=== PATIENT | female | born 1960 | race Caucasian/White ===

== ENCOUNTER 2024-01-04 14:15 | Emergency (ER) | payer BC, SELFPAY ==
[2024-01-04 14:20] VITALS: BP 122/86
[2024-01-04 14:39] LABS: % Basophils 0.6 % (0-2); % Eosinophils 2.9 % (0-6); % Immature Granulocytes 0.8 % (0-0.5); % Lymphocytes 25.8 % (20.5-51.1); % Monocytes 8.6 % (1.7-9.3); % Neutrophils 61.3 % (42.2-75.2); Absolute Basophils 0.1 10^3/uL (0-0.2); Absolute Eosinophils 0.4 10^3/uL (0-0.7); Absolute Immature Granulocytes 0.1 10^3/uL (0-0.05); Absolute Lymphocytes 3.1 10^3/uL (1.2-3.4); Absolute Neutrophils 7.4 10^3/uL (1.4-6.5); Hematocrit 38.3 % (37.0-47.0); Hemoglobin 13.9 g/dL (12.0-16.0); Mean Corp Hgb Conc. 36.3 g/dL (33.0-37.0); Mean Corpuscular Hgb 35.3 pg (27.0-31.0); Mean Corpuscular Volume 97.2 fL (81.0-99.0); Mean Platelet Volume 9.2 fL (7.4-10.4); Nucleated Red Blood Cells % 0 %; Platelet Count 277 10^3/uL (130-400); Red Blood Cell Count 3.94 10^6/uL (4.20-5.40); Red Cell Dist. Width 12.8 % (11.5-14.5)
[2024-01-04 14:53] LABS: ALT (SGPT) 30 U/L (0-35); AST (SGOT) 30 U/L (14-36); Albumin 4.3 g/dl (3.5-5.0); Alkaline Phosphatase 76 U/L (38-126); Blood Urea Nitrogen 18 mg/dl (7-17); Calcium 9.2 mg/dl (8.4-10.2); Carbon Dioxide 26 mmol/L (22-30); Chloride 103 mmol/L (98-107); Glucose 96 mg/dl (70-99); Sodium 134 mmol/L (135-145); Total Bilirubin 0.7 mg/dl (0.2-1.3); Total Protein 6.9 g/dl (6.3-8.2); eGFR > 60.00
[2024-01-04 14:55] LABS: COVID-19 Antigen Negative (Negative)
[2024-01-04 15:03] LABS: Troponin I < 0.012 ng/ml
--- NOTE | 2024-01-04 16:09 | ED.GENMED ---
History of Present Illness
General
Chief Complaint: Cold/Flu/URI Symptoms
Source: patient
Exam Limitations: none
Time Seen by Provider: 01/04/24 16:07
Nursing documentation reviewed up to this point in time: agreed with
Travel History
Have you had any contact with someone who has COVID-19?: No
Do you have any symptoms of coronavirus? Fever > 100 degrees, chills, cough, shortness of breath, sore throat, loss of taste or smell, muscle aches, or headache?: No
History of Present Illness
History of Present Illness:
63-year-old female with history of asthma/COPD states she has had a cough for months she is coughing up 'green chunky stuff.' She denies fever or chills. She has significant sinus stuffiness.
She saw her PCP about a week into the cough and he put her on doxycycline and a 7-day prednisone taper. She was feeling better for short period and then the cough returned, her sinus stuffiness and pressure also returned. She states she has had
significant pressure in her sinuses and headaches due to the sinus pressure. She states sometimes when she blows her nose there is bloody mucus. She has chronic sinus stuffiness and has been using a Katie pot irrigation, Flonase, Sudafed with no
relief. She has known nasal polyps but her ENT will not remove them she says.
She went back to her PCP 2 weeks ago and he put her on Augmentin 875 twice daily for 10 days which she finished yesterday, still no in the room of the cough, still coughing up green chunky stuff, still with significant sinus pressure and stuffiness.
She has had no nausea or vomiting, no chest pain, no shortness of breath
Past History
Past History
ED Past Medical History: Asthma and COPD
ED Past Surgical History: Gynecological
Social History
Tobacco: Former smoker
Personal: Single
Living: with roommate
Review of Systems
Review of Systems
Allergies reviewed?: Yes
All Other Systems: ROS reviewed and negative except as documented in HPI and ROS
Constitutional: Reports fatigue; Denies fever
EENT: Reports other (sinus stuffiness and tenderness); Denies sore throat
Respiratory: Reports cough and trouble breathing
Cardiac: Denies chest pain
ABD/GI: Denies abdominal pain, nausea, vomiting or diarrhea
Musculoskeletal: Reports no symptoms
Skin: Reports no symptoms
Neurological: Reports headache
Phy Exam
Physical Exam
Physical Exam:
GENERAL: No acute distress. A&Ox3.
CONSTITUTIONAL: Afebrile.
EYES: PERRL, conjunctivae normal
Neck: Supple
ENMT: moist mucus membranes, Pharynx nl, cough productive of green sputum. Maxillary sinus tenderness, nasal stuffiness. Erythematous boggy nasal turbinates, small amount clear drainage.
RESPIRATORY: Regular respirations, nonlabored, lungs clear.
CARDIOVASCULAR: Regular rate and rhythm, no murmurs, no rubs.
GI: Soft, nontender, normal BS
MUSCULOSKELETAL: Moves with ease. Well perfused.
SKIN: Warm, dry, pink
PSYCH: Normal mood and affect. Well kept, interactive and appropriate
NEUROLOGIC: Awake, alert and oriented. No focal neurological deficits
Course
Orders/Labs/Results
Orders:
Orders
01/04/24 14:21
Electrocardiogram (*1) Urgent
Reason for Study: Shortness of Breath
01/04/24 14:22
EKG- Treatment ONCE
01/04/24 14:31
COVID-19 Antigen Urgent
Source: Nasal Swab
Complete Blood Count/With Diff Urgent
Comprehensive Metabolic Panel Urgent
Troponin I Urgent
Influenza A+B Rapid Molecular Urgent
GALILEO Source: Nasal Swab
Specimen Description:
01/04/24 16:21
Ipratropium/Albuterol Sulfate [Duoneb] 3 ml INH R NOW ONE
CR Chest - 2 Views Urgent
Comment:
Reason For Exam: SOB, cough
01/04/24 16:31
Ipratropium/Albuterol Sulfate [Duoneb] 3 ml .ROUTE .STK-MED ONE
Abnormal Lab Results
01/04/24
14:31
WBC 12.0 H 10^3/uL
(4.8-10.8)
RBC 3.94 L 10^6/uL
(4.20-5.40)
MCH 35.3 H pg
(27.0-31.0)
Abs Immat Gran (auto) 0.1 H 10^3/uL
(0-0.05)
Absolute Neuts (auto) 7.4 H 10^3/uL
(1.4-6.5)
Absolute Monos (auto) 1.0 H 10^3/uL
(0.1-0.6)
Immature Gran % 0.8 H %
(0-0.5)
Sodium 134 L mmol/L
(135-145)
BUN 18 H mg/dl
(7-17)
01/04/24 14:31
01/04/24 14:31
Vital Signs
Initial and Last Documented VS:
Initial Vital Signs
Temp Pulse Resp BP Pulse Ox
98.7 F 100 20 122/86 97
01/04/24 14:20 01/04/24 14:20 01/04/24 14:20 01/04/24 14:20 01/04/24 14:20
Last Documented Vital Signs
Temp Pulse Resp BP Pulse Ox
98.7 F 100 16 135/80 97
01/04/24 14:20 01/04/24 14:20 01/04/24 18:00 01/04/24 18:00 01/04/24 18:00
MDM/Problems Addressed
Differential Diagnosis Includes:
Bronchitis, pneumonia, COPD exacerbation, sinusitis
MDM/Problems Addressed:
63-year-old female with history of asthma/COPD states she has had a cough for months she is coughing up 'green chunky stuff.' She denies fever or chills. She has significant sinus stuffiness.
She saw her PCP about a week into the cough and he put her on doxycycline and a 7-day prednisone taper. She was feeling better for short period and then the cough returned, her sinus stuffiness and pressure also returned. She states she has had
significant pressure in her sinuses and headaches due to the sinus pressure. She states sometimes when she blows her nose there is bloody mucus. She has chronic sinus stuffiness and has been using a Baldwin pot irrigation, Flonase, Sudafed with no
relief. She has known nasal polyps but her ENT will not remove them she says.
She went back to her PCP 2 weeks ago and he put her on Augmentin 875 twice daily for 10 days which she finished yesterday, still no in the room of the cough, still coughing up green chunky stuff, still with significant sinus pressure and stuffiness.
She has had no nausea or vomiting, no chest pain, no shortness of breath
01/04/2024 1610 PM
CBC with no clinically significant abnormality. Mild elevation in white blood cells at 12.0
CMP normal
COVID test is negative
Flu test is negative
EKG NSR
01/04/2024 1710 PM
After DuoNeb patient states she is feeling 'a little better.'
Chest x-ray normal
01/04/2024 1739 PM
Patient feeling better, stable for discharge. She is requesting prescription for ipratropium since it seems to have helped, prescription sent to pharmacy for #25 Ipratropium
This may be a combination of acute bronchitis, mild flare of her COPD. Rx for Prednisone 40 mg daily for 4 days sent to her pharmacy
Referred to ENT as she wants someone new to evaluate her sinuses.
There is a 2-hour backup in CAT scan, I informed patient of this and she does not want to wait for CAT scan of her sinuses, she will f/u with ENT
She is already using nasal corticosteroids and nasal saline spray and decongestant.
Pt improved, stable for discharge
Ambulated out with normal gait.
*Critical Care Note
Total Time (30-74mins, 75-104mins- exclusive of procedures): Not Applicable
ED Attending Note
-
Portions of this chart may have been created with voice recognition software.� Occasional wrong word or��sound alike� substitutions may have occurred due to the inherent limitations of voice recognition software.
Discharge Plan
Departure
Patient Disposition: Home (Routine Discharge)
Date of Disposition: 01/04/24
Time of Disposition: 17:50
Patient with high blood pressure during this ER visit?: No
Condition: Good
Discharge Problem:
Acute bronchitis, Sinusitis, COPD exacerbation
Instructions: Acute Bronchitis, Adult (DC), Sinusitis, Adult ED
Prescriptions:
New
prednisone 20 mg tablet
40 mg PO DAILY Qty: 8 0RF
ipratropium bromide 0.02 % solution
2.5 ml inhalation Q8H PRN (Reason: Wheezing) Qty: 62.5 0RF
Referrals:
Thomas Arceo MD [Family Provider] - As needed
Andrea Ulloa MD [Active] - Next open appointment
Activity Restrictions/Additional Instructions:
As we discussed, I sent a prescription to your pharmacy for prednisone 40 mg a day for 4 days. I also sent a prescription for ipratropium to add to your albuterol nebulizations twice a day as needed.
I gave you a referral to Dr. Ulloa ENT doctor for your sinus problems
Interventions
Interventions:
*Risk Screen - Suicide Last Done: 01/04/24 16:16
*General Assessment Last Done: 01/04/24 16:16
*Neglect/Abuse Screening Last Done: 01/04/24 16:16
ED- Fall Risk Assessment Last Done: 01/04/24 16:16
*ED COVID-19 Vaccine History Last Done: 01/04/24 16:16
*Nursing Disposition Last Done: 01/04/24 18:00
ED- Pulmonary Assessment Last Done: 01/04/24 16:16
Discharge Date and Time
Discharge Date/Time: 01/04/24 18:00
[2024-01-04] MEDS: DUONEB 3 ML INH (16:42)
[2024-01-04 18:00] VITALS: BP 135/80
== END 2024-01-04 18:00 | disposition home or self-care (01) ==
LOC: EMR 14:15
PROVIDERS: Emergency Medicine; EMERGENCY PHYSICIAN Emergency Medicine; FAMILY PHYSICIAN Family Medicine
DX: J20.9 Acute bronchitis, unspecified (principal); J44.1 Chronic obstructive pulmonary disease with (acute) exacerbation; J01.90 Acute sinusitis, unspecified; R51.9 Headache, unspecified; Z11.52 Encounter for screening for COVID-19; J33.9 Nasal polyp, unspecified; Z87.891 Personal history of nicotine dependence
CPT/HCPCS: 99283; 94640; 71046; 80053; 84484; 85025; 87502; 87811; 93005

== ENCOUNTER → 2024-01-13 09:41 | Outpatient (REF) | payer BC, SELFPAY | LOC: RAD 09:41 | PROVIDERS: ATTENDING PHYSICIAN Physician Assistant Medical | DX: Z87.891 Personal history of nicotine dependence (principal); J31.0 Chronic rhinitis; J33.9 Nasal polyp, unspecified | CPT/HCPCS: 70486; 71046; 71271 ==

== ENCOUNTER → 2024-04-09 10:31 | Outpatient (REF) | payer BC, SELFPAY | LOC: HWRAD 10:31 | PROVIDERS: ATTENDING PHYSICIAN Surgery; FAMILY PHYSICIAN Physician Assistant Medical | DX: Z87.891 Personal history of nicotine dependence (principal); R31.29 Other microscopic hematuria | CPT/HCPCS: 74178; Q9967 ==

== ENCOUNTER 2024-07-02 22:54 | Emergency (ER) | payer BC, SELFPAY ==
[2024-07-02 22:55] VITALS: BP 124/94
--- NOTE | 2024-07-02 23:38 | ED.GENMED ---
History of Present Illness
General
Chief Complaint: Abdominal Pain
Source: patient
Exam Limitations: none
Time Seen by Provider: 07/02/24 23:14
History of Present Illness
History of Present Illness:
This is a 63 year old female that comes in with c/o right lower abd pain. States that she had chronic back pain but this is not her back pain as her back pain shots down into her leg. This comes around to the right lower bd States that last week she
was at [facility] and they keeps her for observation. States that they gave her antibiotics and sent her home with nothing. States that they didn't seem to know what was wrong with her. States that she was given Cipro for a UTI and this is
not helping. States that she is nauseated, had diarrhea and a headache. Denies any fever, chills, chest pain, SOB, vomiting, dizziness, urinary burning.
Past History
Past History
ED Past Medical History: Asthma, COPD and Other (Headaches, Ulcers)
ED Past Surgical History: Gynecological (tubal ligation)
Social History
Tobacco: Smoker
Alcohol: None
Personal:
Living: alone
Review of Systems
Review of Systems
All Other Systems: ROS reviewed and negative except as documented in HPI and ROS
Constitutional: Reports no symptoms; Denies fever or chills
EENT: Reports no symptoms
Respiratory: Reports no symptoms; Denies cough or trouble breathing
Cardiac: Reports no symptoms; Denies chest pain
ABD/GI: Reports abdominal pain, nausea and diarrhea; Denies vomiting
: Reports no symptoms; Denies dysuria, frequency or urgency
Musculoskeletal: Reports no symptoms
Skin: Reports no symptoms
Neurological: Reports headache; Denies dizzy
Psychiatric: Reports no symptoms
Phy Exam
General Physical Exam
General Presentation: mild distress
General age: appears stated age
General Skin: warm and dry
General Habitus: elderly
General Mental: alert
General Hydration: appears well hydrated
ENT Exam
ENT Exam: TM's normal, pharynx normal and neck supple
Eye Exam
Eye Exam: EOMI
Cardiovascular Exam
Cardiovascular Exam: regular rate/rhythm, no edema, no murmur and normal peripheral pulses
Pulmonary Exam
Pulmonary Exam: lungs clear, no respiratory distress, no rales, chest non tender, no crackles, no rhonchi, no wheezing and no cough
Gastrointestinal Exam
Gastrointestinal Exam: normal bowel sounds, soft, no organomegaly, no pulsatile mass, non distended and tender (Right lower abd pain)
Musculoskeletal Exam
Musculoskeletal Exam: full ROM and no edema
Skin Exam
Skin Exam: normal color, warm/dry, no rash and no petechia
Psychiatric Exam
Psychiatric Exam: normal mood/affect
Course
Orders/Labs/Results
Orders:
Orders
07/02/24 23:37
Complete Blood Count/With Diff Urgent
Comprehensive Metabolic Panel Urgent
Urinalysis Reflex To Culture Urgent
Date Specimen was Collected: 07/03/24
Time Specimen was Collected: 01:32
0.9% Sodium Chloride 1000 ml [Nss] 1,000 ml IV BOLUS
Ketorolac [Toradol] 30 mg IV NOW STA
07/02/24 23:38
Ondansetron Injectable [Zofran] 4 mg IV NOW STA
07/03/24 00:00
CT Abd/pelvis W Iv Cont Urgent
Comment: History of recent UTi
Reason For Exam: Right lower abd pain
07/03/24 01:27
Acetaminophen 1000MG/100Ml [Ofirmev] 1,000 mg in 100 ml IV ONCE
Acetaminophen IV Indication:: ED Narcotic Naive Pt-ONCE
07/03/24 01:35
Urine Microscopic Reflex Cult Urgent
Abnormal Lab Results
07/03/24 07/03/24
00:18 01:35
RBC 4.00 L 10^6/uL
(4.20-5.40)
MCH 33.5 H pg
(27.0-31.0)
MPV 10.5 H fL
(7.4-10.4)
Neutrophils % 37.1 L %
(42.2-75.2)
Chloride 108 H mmol/L
(98-107)
Glucose 100 H mg/dl
(70-99)
Leukocyte Esterase Rfl Trace A
(Negative)
Urine Bacteria (Reflex) Few A
(Negative)
07/03/24 00:18
07/03/24 00:18
RBC very slightly low. Glucose nonfasting. Urine negative for infection.
Vital Signs
Initial and Last Documented VS:
Initial Vital Signs
Temp Pulse Resp BP Pulse Ox
97.8 F 72 18 124/94 97
07/02/24 22:55 07/02/24 22:55 07/02/24 22:55 07/02/24 22:55 07/02/24 22:55
Last Documented Vital Signs
Temp Pulse Resp BP Pulse Ox
97.8 F 66 18 107/63 97
07/02/24 22:55 07/03/24 02:00 07/03/24 02:00 07/03/24 01:38 07/03/24 00:45
MDM/Problems Addressed
Differential Diagnosis Includes:
Renal calculus, Pyelonephritis, Appendicitis.
MDM/Problems Addressed:
This is a 63 year old female that comes in with c/o right lower abd pain. States that this started last and she went to [facility]. States that they kept her as an observation and discharged her home. States that they didn't know what was wrong with
her to she came here. States that she was treated for a UTI on Cipro.
Will check labs. CT scan, IV fluids and pain medication.
Back into see patient. Explained that her blood work is normal and her CT is negative for any acute process. There is degenerative changes in the spine and pelvis. Explained that the nerves wrap around from the spine and this is most likely the
cause of her abd pain. Urine is negative for infection. Encouraged patient to follow up with an relations specialist. Patient can use Tylenol and Ibuprofen for pain. Return with any concerns.
Chronic conditions affecting care: COPD and Other (Chronic back pain)
Acute Exacerbation and/or Progression of Chronic Illness:
chronic back pain
*Radiology
Radiology exam reviewed: radiology read reviewed (CT night hawk- No findings to suggest etiology for right lower quadrant pain. Normal appendix (series 201 [id number]) No acute bowel findings. No obstructing ureteral calculus, Hydronephrosis or signs of
pyelonephritis. No hernia. Incidental findings: completely contracted gallbladder. Atrophic ) and other (Ct cont- partially fatty infiltrated pancreas. Atherosclerotic calcifications abdominal aorta and iliac vessels. Mild degenerative changes in
the spine and pelvis. )
*Pulse Oximetry
Patient hypoxic: no
*EKG
Interpreted by ED Provider?: NA
Rate: EKG- N/A
*Agricultural Mechanic Interpretation
Rate: Agricultural Mechanic- N/A
*Critical Care Note
Total Time (30-74mins, 75-104mins- exclusive of procedures): Not Applicable
ED Attending Note
-
Portions of this chart may have been created with voice recognition software.� Occasional wrong word or��sound alike� substitutions may have occurred due to the inherent limitations of voice recognition software.
Discharge Plan
Departure
Patient Disposition: Home (Routine Discharge)
Date of Disposition: 07/03/24
Time of Disposition: 02:07
Patient with high blood pressure during this ER visit?: No
Condition: Good
Covid-19: Not Applicable
Discharge Problem:
Abdominal pain, Low back pain
Instructions: Low Back Pain (DC), Abdominal Pain
Prescriptions:
No Action
Flexeril
1 tab PO DAILY PRN (Reason: back pain)
Patient Comments:
unsure of mg
Referrals:
NONE,* [Family Provider] -
Activity Restrictions/Additional Instructions:
As discussed, your blood work is normal. Your CT scan is negative for any acute process. There is degenerative changes in the low back. This may be causing your abd pain as the nerves from the back wrap around to the abd and can cause abd pain.
Please follow up with your performance solutions specialist and your family doctor. You may use Tylenol 1000mg every 6 hours and alternate with Ibuprofen 600mg every 6 hours for pain. Heat or ice to the low back. IF YOU HAVE ANY OTHER CONCERNS PLEASE RETURN TO
THE EMERGENCY ROOM.
Interventions
Interventions:
*Risk Screen - Suicide Last Done: 07/02/24 23:55
*General Assessment Last Done: 07/02/24 22:55
*Neglect/Abuse Screening Last Done: 07/02/24 22:55
ED- Fall Risk Assessment Last Done: 07/02/24 22:55
EK-Jhivim-Ebjlxydtwj Assessment Last Done: 07/02/24 23:55
Discharge Date and Time
Print Language: WOLOF
[2024-07-02 23:58] VITALS: BMI 22.6
[2024-07-03] MEDS: TORADOL 30 MG IV (00:14)
[2024-07-03] MEDS: ZOFRAN 4 MG IV (00:14)
[2024-07-03] MEDS: NSS 1000 IV (00:14)
[2024-07-03 00:25] VITALS: BP 132/74
[2024-07-03 00:45] LABS: ALT (SGPT) 26 U/L (0-35); AST (SGOT) 29 U/L (14-36); Albumin 4.2 g/dl (3.5-5.0); Alkaline Phosphatase 76 U/L (38-126); Blood Urea Nitrogen 17 mg/dl (7-17); Calcium 9.5 mg/dl (8.4-10.2); Carbon Dioxide 25 mmol/L (22-30); Chloride 108 mmol/L (98-107); Estimated Creatinine Clearance 71 ml/min; Glucose 100 mg/dl (70-99); Potassium 3.9 mmol/L (3.5-5.1); Sodium 138 mmol/L (135-145); Total Bilirubin 0.5 mg/dl (0.2-1.3); Total Protein 6.5 g/dl (6.3-8.2); eGFR > 60.00
[2024-07-03 00:49] LABS: % Basophils 0.9 % (0-2); % Immature Granulocytes 0.5 % (0-0.5); % Lymphocytes 50.2 % (20.5-51.1); % Monocytes 7.3 % (1.7-9.3); % Neutrophils 37.1 % (42.2-75.2); Absolute Basophils 0.1 10^3/uL (0-0.2); Absolute Eosinophils 0.3 10^3/uL (0-0.7); Absolute Lymphocytes 3.2 10^3/uL (1.2-3.4); Absolute Monocytes 0.5 10^3/uL (0.1-0.6); Absolute Neutrophils 2.4 10^3/uL (1.4-6.5); Hematocrit 37.7 % (37.0-47.0); Hemoglobin 13.4 g/dL (12.0-16.0); Mean Corp Hgb Conc. 35.5 g/dL (33.0-37.0); Mean Corpuscular Hgb 33.5 pg (27.0-31.0); Mean Corpuscular Volume 94.3 fL (81.0-99.0); Mean Platelet Volume 10.5 fL (7.4-10.4); Nucleated Red Blood Cells % 0 %; Platelet Count 243 10^3/uL (130-400); Red Cell Dist. Width 12.4 % (11.5-14.5); White Blood Cell Count 6.4 10^3/uL (4.8-10.8)
[2024-07-03] MEDS: OFIRMEV 100 IV (01:35)
[2024-07-03 01:38] VITALS: BP 107/63
[2024-07-03 01:54] LABS: Urine Albumin Negative (Neg - Trace); Urine Bilirubin Negative (Negative); Urine Character Clear (Clear); Urine Color Yellow; Urine Glucose Negative (Negative); Urine Ketone Negative (Negative); Urine Leukocyte Trace (Negative); Urine Nitrite Negative (Negative); Urine Occult Blood Negative (Negative); Urine Urobilinogen Negative (Neg - 1+)
[2024-07-03 02:00] VITALS: BP 99/58
[2024-07-03 02:28] LABS: Urine Squamous Cell >30 /LPF (Few)
[2024-07-03 02:29] LABS: Urine Bacteria Few (Negative); Urine Red Blood Cell 0-2 /HPF (0-2)
== END 2024-07-03 02:47 | disposition home or self-care (01) ==
LOC: EMR 22:54
PROVIDERS: Clinical Nurse Specialist Family Health; EMERGENCY PHYSICIAN Emergency Medicine
DX: R10.31 Right lower quadrant pain (principal); J44.89 Other specified chronic obstructive pulmonary disease; N39.0 Urinary tract infection, site not specified; F17.200 Nicotine dependence, unspecified, uncomplicated; Z87.440 Personal history of urinary (tract) infections; Z98.51 Tubal ligation status
CPT/HCPCS: 99284; 96365; 96375; 74177; 80053; 81003; 81015; 85025; Q9967